=== PATIENT | female | born 1965 | race Caucasian/White ===

== ENCOUNTER → 2018-02-13 | Outpatient (CLI) | payer BC ==
--- NOTE | 2018-02-14 13:35 | MR ---
EXAMINATION TYPE: MR brain/cspine wo/w DATE OF EXAM: 02/13/2018 COMPARISON: Prior MR brain and cervical spine 02/20/2016 HISTORY: MS F/U, CEREBRAL ANEURYSM TECHNIQUE: Multiplanar, multisequence images of the brain and brainstem is performed without and with IV contras t, utilizing 6 mL intravenous Gadavist . FINDINGS: Diffusion weighted images demonstrate no evidence of a recent infarct or other diffusion ab normality. There is no extra-axial fluid collection or significant interval change white matter sign al abnormality. Multiple scattered hyperintensities are present on inversion recovery and T2-weighted sequences within the pericallosal, periventricular deep white matter, subcortical and juxtacortical brain as on prior exam, size and number are stable. Susceptibility artifact due to patient's procedur al change suspected at the right middle cerebral artery, temporal lobe is some associated gliosis. Hernandez spect 40-50 white matter lesions. The ventricular system and cisternal spaces are normal in size and appearance. The brain volume is age appropriate. Midline structures demonstrate normal morphology. The craniocervical junction appears within normal limits. Post contrast images demonstrate no abnormal enhancement. The dural venous sinuses appear pa tent. The visualized sinuses are clear and the globes are intact. IMPRESSION: Stable signal abnormalities compatible with patient's history of multiple sclerosis Cervical spine MRI: Mild degenerative disc changes are again noted. Cervical cord signal is stable, s ome minimal increased signal may be present in the posterior aspect of the cord at C3-4 and also cerv ical thoracic junction. No abnormal enhancement following contrast administration. No significant madelin tral canal stenosis or foraminal encroachment. IMPRESSION: Mild degenerative disc disease. Stable cord signal.
--- NOTE | 2018-02-14 13:41 | MR ---
EXAMINATION TYPE: MR angio head wo con DATE OF EXAM: 02/13/2018 COMPARISON: Prior exam 12/27/2014 HISTORY: MS F/U, CEREBRAL ANEURYSM TECHNIQUE: Time of flight images focusing on the [place] were performed without contrast. Th ree-dimensional is processing performed on an alternate workstation FINDINGS: The exam is stable. No evident aneurysm. Anterior posterior circulation are intact. No va scular malformation. origin of the right posterior cerebral artery again noted. IMPRESSION: Stable exam, no significant interval change.
== END ==
LOC: RADMRIMAIN 20:33
PROVIDERS: ATTEND Psychiatry & Neurology Neurology
DX: M50.30 Other cervical disc degeneration, unspecified cervical region (principal); G35 Multiple sclerosis
CPT/HCPCS: 70544; 70553; 72156; A9581

== ENCOUNTER → 2019-04-13 | Outpatient (CLI) | payer BC ==
--- NOTE | 2019-04-14 08:27 | MM ---
Reason for exam: screening (asymptomatic). Last mammogram was performed 4 years and 3 months ago. History: Patient is postmenopausal and had first child at age 34. Benign right US cyst aspiration of the right breast, March 28, 2010. Benign US right guided VAD of the right breast, March 28, 2010. Took hormonal contraceptives for 10 years. Physical Findings: A clinical breast exam by your physician is recommended on an annual basis and results should be correlated with mammographic findings. MG 3D Screening Mammo W/Cad Bilateral CC and MLO view(s) were taken. Prior study comparison: January 12, 2015, bilateral MG screening mammo w CAD. October 08, 2012, bilateral digital screening mammo w/CAD. The breast tissue is heterogeneously dense. This may lower the sensitivity of mammography. There are benign appearing round calcifications bilaterally. Previous mammotome biopsy in the right breast x 2. There is chronic nodularity in the left breast. ASSESSMENT: Benign, BI-RAD 2 RECOMMENDATION: Routine screening mammogram of both breasts in 1 year.
== END | disposition home or self-care (01) ==
LOC: RADMAMWWP 08:14
PROVIDERS: ATTEND Obstetrics & Gynecology
DX: Z12.31 Encounter for screening mammogram for malignant neoplasm of breast (principal)
CPT/HCPCS: 77063; 77067

== ENCOUNTER 2019-08-17 11:43 | Day surgery (SDC) | payer BC ==
[2019-08-13 14:58] VITALS: BMI 27.4
[~2019-08-17 11:43] MED LIST: LACTATED RINGERS 1,000 ML IV SCH; LIDOCAINE 1% 20 ML VIAL (10MG/ML) FOR IV START INTRADERMA PRN
[2019-08-17 12:19] VITALS: TEMP 98.3
[2019-08-17] MEDS ORDERED: PROPOFOL 10 MG/ML 20 ML VIAL IV ONE (12:40)
[2019-08-17] MEDS ORDERED: ONDANSETRON 4 MG/2 ML VIAL ONE (12:40)
--- NOTE | 2019-08-17 13:10 | P.PCN ---
Date of Procedure: 08/17/19 Description of Procedure: BRIEF HISTORY: Patient is a 54-year-old pleasant female scheduled for an elective colonoscopy as a part of screening for malignant neoplasm of the colon. Patient denies any family history of colon cancer, change in bowel habits or blood per rectum. No prior colonoscopy reported. PROCEDURE PERFORMED: Colonoscopy. PREOPERATIVE DIAGNOSIS: Screening for malignant neoplasm colon, no prior colonoscopy reported. ESTIMATED BLOOD LOSS: Minimal. IV sedation per Anesthesia. PROCEDURE: After informed consent was obtained, the patient, was brought into the endoscopy unit. IV sedation was administered by Anesthesia under continuous monitoring. Digital rectal examination was normal. Initially the Olympus CF-190 flexible video colonoscope was then inserted in the rectum, gradually advanced into the cecum without any difficulty. Careful examination was performed as the scope was gradually being withdrawn. Ileocecal valve and the appendiceal orifice were visualized and appeared normal. Prep was excellent. Mucosa of the cecum, ascending colon, transverse colon, descending colon, sigmoid colon, and rectum appeared normal. Mild scattered diverticula noted in the sigmoid colon. Retroflexion was performed in the rectum and no lesions were seen. The patient tolerated the procedure well. IMPRESSION: Normal-appearing colon from rectum to cecum. Mild sigmoid diverticulosis. RECOMMENDATIONS: Findings of this examination were discussed with the patient and her . Okay to resume diet. Okay to resume medications. Would recommend repeat colonoscopy in 10 years for screening purposes, or sooner if signs or symptoms which warrant further evaluation develop.
[2019-08-17 13:29] VITALS: BP 130/74; PULSE 76; RESP 15
== END 2019-08-17 14:00 | disposition home or self-care (01) ==
LOC: ORWHC2ENDO 11:43
PROVIDERS: ATTEND Internal Medicine
DX: Z12.11 Encounter for screening for malignant neoplasm of colon (principal); K57.30 Diverticulosis of large intestine without perforation or abscess without bleeding; Z79.899 Other long term (current) drug therapy; Z90.89 Acquired absence of other organs; Z98.890 Other specified postprocedural states
CPT/HCPCS: J2405; J2704; G0121

== ENCOUNTER → 2021-06-07 | Outpatient (CLI) | payer BC ==
--- NOTE | 2021-06-08 06:23 | MR ---
EXAMINATION TYPE: MR brain/cspine wo DATE OF EXAM: 06/07/2021 COMPARISON: Prior MRI brain and cervical spine February 13, 2018. HISTORY: MS follow up, ordered without contrast. TECHNIQUE: Multiplanar, multisequence imaging of the cervical spine, brain, and brainstem are all per formed without IV contrast. Demyelinating disease protocol. FINDINGS: BRAIN: FINDINGS: T2 Lesions Present : Yes Approximate Number of Lesions: Approximately 40-50 Locations Identified : Scattered Size of Reference Lesion(s): 1. 0.9 x 0.7 x 0.7 cm on axial image 21 and sagittal image 25 right periventricular parietal lesion s table Enhancing Lesion(s) Present: n/a T1 Hypointense Lesion(s) Present: Yes Change from Prior: Stable Diffusion weighted images demonstrate no evidence of a recent infarct or other diffusion abnormality. There is no worrisome extra-axial fluid collection. The ventricular system and cisternal spaces ar e normal in size and appearance. The brain volume is age appropriate. Midline structures demonstrate normal morphology. The craniocervical junction appears within normal limits. Normal signal flow voids. Elongated right globe redemonstrated. Paranasal sinuses remain michelle r. There is 1.8 x 1.3 cm prominent Virchow-Shamir space or possible focal old infarct right temporal l obe axial image 13 redemonstrated and stable. IMPRESSION: Stable moderate nonspecific white matter changes may be on basis of known multiple sclero sis and/or products of chronic small vessel ischemic change. No significant change from most recent p rior. C-SPINE: FINDINGS: Sagittal images of the cervical spine show the craniocervical junction to remaining within normal limits. The cervical and upper thoracic spinal cord remains normal in course and caliber. No new areas of abnormal T2 cord signal. Prior visualized abnormal signal posterior C3-C4 level less wel l seen on current study . Vertebral alignment is stable and satisfactory. The vertebral body and i ntravertebral disk heights are maintained normal. Large hemangioma T3 vertebral body level is redem onstrated. Axial images show the C2-C3 and C3-C4 levels to appear within normal limits with the exception of salma nt increased signal posteriorly C3-C4 disc space level on axial image 37 redemonstrated in the midlin e. Axial images at C4-C5 level show left paracentral disc protrusion effacing anterior thecal sac on axi al image 31, bilateral neural foramina remain patent. Axial images at C5-C6 level show broad-based posterior disc protrusion effacing anterior thecal sac, and causing [id number] bilateral neural foraminal narrowing. Axial images at C6-C7 level show central posterior disc protrusion effacing the anterior thecal sac, and causing mild left-sided neural foraminal narrowing. Axial images at C7-T1 level remain within normal limits. IMPRESSION: Stable subtle small focal area of demyelinating disease involvement posterior C3-C4 disc space level and fairly stable multilevel degenerative changes in the mid to lower cervical spine. N o new lesions are present.
== END | disposition home or self-care (01) ==
LOC: RADMRIMAIN 17:20
PROVIDERS: ATTEND Psychiatry & Neurology Neurology
DX: G35 Multiple sclerosis (principal); M47.812 Spondylosis without myelopathy or radiculopathy, cervical region
CPT/HCPCS: 70551; 72141

== ENCOUNTER → 2021-11-24 | Outpatient (CLI) | payer BC ==
--- NOTE | 2021-11-27 09:56 | MM ---
Reason for exam: screening (asymptomatic). Last mammogram was performed 2 years and 7 months ago. History: Patient is postmenopausal and had first child at age 34. Benign right US cyst aspiration of the right breast, March 28, 2010. Benign US right guided VAD of the right breast, March 28, 2010. Took hormonal contraceptives for 10 years. Physical Findings: A clinical breast exam by your physician is recommended on an annual basis and results should be correlated with mammographic findings. MG Screening Mammo w CAD Bilateral CC and MLO view(s) were taken. Prior study comparison: April 13, 2019, bilateral MG 3d screening mammo w/cad. January 12, 2015, bilateral MG screening mammo w CAD. The breast tissue is heterogeneously dense. This may lower the sensitivity of mammography. There are benign appearing round calcifications bilaterally. Previous mammotome biopsy in the right breast x 2. There is chronic nodularity in the left breast. Grouped dystrophic calcifications right breast decreased, but increased in number but benign morphology. ASSESSMENT: Benign, BI-RAD 2 RECOMMENDATION: Routine screening mammogram of both breasts in 1 year.
== END | disposition home or self-care (01) ==
LOC: RADMAMWWP 10:12
PROVIDERS: ATTEND Family Medicine
DX: Z12.31 Encounter for screening mammogram for malignant neoplasm of breast (principal); Z78.0 Asymptomatic menopausal state
CPT/HCPCS: 77067

== ENCOUNTER → 2021-12-26 | Outpatient (CLI) | payer BC ==
--- NOTE | 2021-12-27 07:16 | US ---
EXAMINATION TYPE: US pelvis complete transvag DATE OF EXAM: 12/26/2021 COMPARISON: NONE CLINICAL HISTORY: R10.30 lower abdominal pain unspecified. Pt states urinary urgency and pelvic pain TECHNIQUE: Transvaginal (TV) and Transabdominal (TA) . Transabdominal sonographic images of the pel vis were acquired. Transvaginal sonographic images were medically necessary to better assess the fol lowing anatomy: Entire pelvis Date of LMP: pt states age 49 EXAM MEASUREMENTS: Uterus: 6.5 x 3.0 x 4.0 cm Endometrial Stripe: 0.4 cm Right Ovary: 1.5 x 1.0 x 1.0 cm 1. Uterus: Anteverted Heterogeneous, scar visible 2. Endometrium: wnl 3. Right Ovary: wnl 4. Left Ovary: Obscured by overlying bowel gas 5. Bilateral Adnexa: wnl 6. Posterior cul-de-sac: wnl IMPRESSION: No significant abnormality appreciated.
== END | disposition home or self-care (01) ==
LOC: RADUSWWP 16:12
PROVIDERS: ATTEND Family Medicine
DX: R10.30 Lower abdominal pain, unspecified (principal); R39.15 Urgency of urination; R10.2 Pelvic and perineal pain
CPT/HCPCS: 76830; 76856

== ENCOUNTER → 2024-05-26 | Outpatient (CLI) | payer BC ==
--- NOTE | 2024-05-27 09:00 | MM ---
Reason for Exam: Screening (asymptomatic). Last mammogram was performed 2 year(s) and 6 month(s) ago. Patient History: Menarche at age 11. First Full-Term at age 34. Late child-bearing (after 29). Postmenopausal. Patient has history of breast feeding. Hormonal Contraceptives for 10 years until age 32. Currently using Estrogen and Progesterone, starting at age 56. 03/28/2010, Benign Cyst Aspiration on the right side. 03/28/2010, Benign Core Biopsy on the right side. Risk Values: Steffanie 5 year model risk: 2.3%. NCI Lifetime model risk: 12.0%. Prior Study Comparison: 10/08/2012 Bilateral Screening Mammogram, [facility]. 01/12/2015 Bilateral Screening Mammogram, [facility]. 04/13/2019 Bilateral Screening Mammogram, [facility]. 11/24/2021 Bilateral Screening Mammogram, [facility]. Tissue Density: The breasts are heterogeneously dense, which may obscure small masses. Findings: Analyzed By CAD. There is no suspicious group of microcalcifications or new suspicious mass in either breast. Overall Assessment: Benign, BI-RAD 2 Management: Screening Mammogram of both breasts in 1 year. . Patient should continue monthly self-breast exams. A clinical breast exam by your physician is recommended on an annual basis. This exam should not preclude additional follow-up of suspicious palpable abnormalities. Note on Steffanie scores and lifetime risk: 1. A Steffanie score greater than 3% is considered moderate risk. If this is the case, consider specialist referral to assess eligibility for a risk reducing agent. 2. If overall lifetime risk for the development of breast cancer is 20% or higher, the patient may qualify for future screening with alternating mammogram and breast MRI. Electronically signed and approved by: Fred Deluna M.D. Radiologis
== END | disposition home or self-care (01) ==
LOC: RADMAMWWP 10:43
PROVIDERS: ATTEND Family Medicine
DX: Z12.31 Encounter for screening mammogram for malignant neoplasm of breast (principal); R92.333 Mammographic heterogeneous density, bilateral breasts; Z78.0 Asymptomatic menopausal state
CPT/HCPCS: 77067